=== PATIENT | male | born 1950 | race Caucasian/White ===

== ENCOUNTER 2023-02-07 14:56 | Emergency (ER) | payer BC, MEDICARE ==
[~2023-02-07] VITALS: Ht 180.3 cm; Wt 101.2 kg
--- NOTE | 2023-02-07 15:28 | ED Upper Extremity ---
General Chief Complaint: Laceration Stated Complaint: LT ARM LAC Nursing Triage Note: PT AMBULATE TO ROOM FS02 WITHOUT DIFFICULTY WITH C/O LAC TO INSIDE LEFT FOREARM. PT REPORTS CUTTING ARM ON SAW. Source: patient History of Present Illness Date Seen by Provider: Feb 07, 2023 Time Seen by Provider: 15:28 Initial Comments 73-year-old male presenting with laceration to his left forearm. He states he was using a circular saw and accidentally cut into his arm. He denies any significant pain. He is unsure of his last tetanus booster. He is neurovascularly and tendon intact. He denies any other injuries. Onset: this morning Severity: mild Pain/Injury Location: left forearm Method of Injury: incised Modifying Factors: Worse With Movement Allergies and Home Medications Allergies Coded Allergies: No Known Drug Allergies (Unverified , 02/07/23) Patient Home Medication List Home Medication List Reviewed: Yes Review of Systems Constitutional: no symptoms reported EENTM: no symptoms reported Respiratory: no symptoms reported Cardiovascular: no symptoms reported Gastrointestinal: no symptoms reported Genitourinary: no symptoms reported Musculoskeletal: see HPI Skin: see HPI Psychiatric/Neurological: Denies Numbness, Denies Paresthesia Past Vtrhett-Tkzxzr-Xvqvky Hx Patient Social History Smoking Status: Never a Smoker Smokeless Tobacco Frequency: Never a User Use of E-Cig and/or Vaping dev: No Use of E-Cig and/or Vaping Bridger: Never a User Substance use?: No Alcohol Use?: No Pt feels they are or have been: No Physical Exam Vital Signs Vital Signs - First Documented 02/07/23 15:04 Temp 36.7 Pulse 89 Resp 19 B/P (MAP) 130/78 (95) O2 Delivery Room Air Capillary Refill : Less Than 3 Seconds Height, Weight, BMI Height: '" Weight: lbs. oz. kg; 31.00 BMI Method: General Appearance: WD/WN, no apparent distress Cardiovascular: normal peripheral pulses Elbow/Forearm: Left, deformity (Laceration of the left midforearm. Bleeding controlled with pressure.), pain, soft tissue tenderness Neurologic/Tendon: normal sensation, normal motor functions, normal tendon functions Neurologic/Psychiatric: alert, oriented x 3 Skin: normal color, warm/dry Procedures/Interventions Wound Location: Upper Extremities (Left forearm) Wound Length (cm): 3.6 Wound's Depth, Shape: superficial, linear, sub Q Wound Explored: clean Irrigated w/ Saline (ccs): 100 Anesthesia: 1% Lidocaine Volume Anesthetic (ccs): 3 Suture: Ethlion Suture Size: 4-0 Number of Sutures: 8 Progress After obtaining verbal consent from the patient at the wound was anesthetized using 1% plain lidocaine with a total of 3.5 mL infiltrated. Then the wound was cleaned with chlorhexidine scrub soap and sterile water. Using 4-0 Ethilon a total of 8 simple interrupted stitches were placed to approximate the wound edges. Patient tolerated procedure well without any immediate complication. Counseled on follow-up and return precautions. Advised to have the stitches out in 10 to 14 days. Progress/Results/Core Measures Results/Orders My Orders Orders - RUSSELL MCKEON MD Wound Dressing-Ed (02/07/23 16:01) Suture Set At Bedside (02/07/23 16:01) Lidocaine 1% Inj 20 Ml (Xylocaine 1% Inj (02/07/23 16:15) Dipht/Pertuss(Acell)/Tet Adult (Dipht/Pe (02/07/23 16:15) Medications Given in ED Current Medications Medications Dose Ordered Sig/Mercedez Route Start Time Stop Time Status Last Admin Dose Admin Diphtheria/ Tetanus/Acell Pertussis 0.5 ml ONCE ONCE IM 02/07/23 16:15 02/07/23 16:13 DC 02/07/23 16:07 0.5 ML Lidocaine HCl 20 ml ONCE ONCE INJ 02/07/23 16:15 02/07/23 16:13 DC 02/07/23 16:08 20 ML Vital Signs/I&O 02/07/23 15:04 Temp 36.7 Pulse 89 Resp 19 B/P (MAP) 130/78 (95) O2 Delivery Room Air Blood Pressure Mean: 95 Progress Progress Note : Progress Note After obtaining verbal consent from the patient the wound was anesthetized using 1% plain lidocaine. A total of 3 mils were infiltrated into the wound. Then using 4-0 Ethilon a total of 8 simple interrupted stitches were placed to approx imate the wound edges. Patient did have the wound further cleaned with chlorhexidine scrub soap and sterile water prior to approximating the wound edges. Overall he tolerated procedure well without any immediate complication. Counseled on follow-up and return precautions. Advised to keep the wound clean and dry for the first 24 hours and then may wash it after that but do not soak it. Watch for signs of infection and be seen sooner if he sees that. Stitches could be removed after 10 to 14 days. Departure Impression Primary Impression: Laceration of left forearm without complication Qualified Codes: S51.812A - Laceration without foreign body of left forearm, initial encounter Disposition: 01 HOME, SELF-CARE Condition: Improved Departure-Patient Inst. Decision time for Depature: 16:02 Referrals: SELFCOLLEEN MD (PCP/Family) Primary Care Physician Patient Instructions: Laceration Repair With Stitches ED Add. Discharge Instructions: Keep area clean and dry for the first 24 hours. After that you may remove the dressing and clean with soap and water but do not soak the wound. May apply antibiotic ointment and a new dressing 2-3 times a day as needed to keep it clean and covered so it does not get dirty or problem closed. Stitches should be removed in 10 to 14 days. Be seen sooner if having concerns for infection such as redness streaking up your arm, pus draining from the wound, fever over 101 Fahrenheit. May apply ice 10 to 15 minutes every few hours as needed for pain and swelling. May take acetaminophen and/or ibuprofen if needed for pain. All discharge instructions reviewed with patient and/or family. Voiced understanding. RUSSELL MCKEON MD Feb 07, 2023 15:28
[2023-02-07 16:13] VITALS: BP 143/87
[2023-02-07] MEDS ORDERED: LIDOCAINE 1% INJ 20 ML VIAL INJ ONE (16:15)
[2023-02-07] MEDS ORDERED: Tetanus/Diphtheria/Pertussis (Acell) ADULT Vaccine 0.5 ML IM ONE (16:15)
== END 2023-02-07 16:13 | disposition home or self-care (01) ==
LOC: EDUNIT# 14:56 → ER FS 14:57
DX: S51.812A Laceration without foreign body of left forearm, initial encounter (principal); Z23 Encounter for immunization; W27.0XXA Contact with workbench tool, initial encounter
CPT/HCPCS: 12042; 90471; 90715; 99282

== ENCOUNTER 2023-02-21 13:16 | Emergency (ER) | payer MEDICARE ==
[~2023-02-21] VITALS: Ht 177 cm; Wt 100.0 kg
[2023-02-21 13:19] VITALS: BP 125/80
== END 2023-02-21 13:26 | disposition home or self-care (01) ==
LOC: EDUNIT# 13:16 → ER FS 13:17
DX: Z48.02 Encounter for removal of sutures (principal)